=== PATIENT | male | born 1940 | race Caucasian/White ===

== ENCOUNTER 2017-12-31 08:26 | Day surgery (SDC) | payer MEDICARE, BC ==
[2017-12-31] MEDS ORDERED: LIDOCAINE 2% MDV (20MG/ML) 20ML VIAL IV ONE (08:27)
[2017-12-31] MEDS ORDERED: PROPOFOL 10 MG/ML VIAL IV ONE (08:27)
[2017-12-31] MEDS ORDERED: MIDAZOLAM HCL 2MG/2ML VIAL IV ONE (08:27)
[2017-12-31 09:04] LABS: PROTHROMBIN TIME (PATIENT) 10.9 SECONDS (9.5-12.1)
--- NOTE | 2018-01-01 12:40 | Operative Note ---
DATE OF SURGERY: 12/31/2017 OPERATION: COLONOSCOPY. PREOPERATIVE DIAGNOSIS: Cologuard positive. POSTOPERATIVE DIAGNOSIS: Fair prep. Otherwise normal exam. PROCEDURE: After informed consent was obtained from the patient, he was placed in the left lateral decubitus position in the endoscopy suite, sedated and monitored by the department of anesthesia. Digital rectal exam was unremarkable. A well-lubricated [id number] colonoscope was inserted into the rectum and advanced to the cecum. Preparation quality was fair. Numerous areas needed to be lavaged. Suboptimal preparation quality was observed. Semi-particulate matter was noted throughout the length of the colon. Some areas were unable to be completely evacuated. In any event, the cecum ascending colon, transverse colon, descending colon, sigmoid colon, and rectum were unremarkable. I could not find any polyps or large mass lesions. Small polyps may have been obscured by the preparation quality. J-turn views of the anorectum were unrevealing. The endoscope was straightened, the rectal ampulla deflated, and the endoscope was removed. RECOMMENDATIONS: I would suggest the patient undergo repeat exam in 1 year based on the prep quality. As always, thank you for allowing me to participate in the healthcare of your patients. CC: DO FORTINO Hickman
== END 2017-12-31 10:05 | disposition home or self-care (01) ==
LOC: HOP 08:26
PROVIDERS: ATTEND Internal Medicine Gastroenterology
DX: R19.5 Other fecal abnormalities (principal); E11.9 Type 2 diabetes mellitus without complications; I10 Essential (primary) hypertension; E78.00 Pure hypercholesterolemia, unspecified; Z79.4 Long term (current) use of insulin; K31.84 Gastroparesis; D68.51 Activated protein C resistance; Z86.711 Personal history of pulmonary embolism
CPT/HCPCS: 82947; 85610